=== PATIENT | male | born 1970 | race Two or more races ===

== ENCOUNTER 2023-04-04 23:51 | Emergency (ER) | payer MEDICAID, OTHER ==
[~2023-04-04] VITALS: Ht 167.6 cm; Wt 70.0 kg
[2023-04-04] MEDS ORDERED: SODIUM BICARBONATE 8.4% INJ 50ML SYRINGE IV ONE (23:52)
[2023-04-04] MEDS ORDERED: AMIODARONE 150mg/D5W 100ml AE (BOLUS) IV ONE (23:52)
[2023-04-04] MEDS ORDERED: NALOXONE HCL 1MG/ML 2ML SYRINGE IV ONE (23:52)
[2023-04-04] MEDS ORDERED: ATROPINE SULF 1 MG/10ml SYR IV ONE (23:52)
[2023-04-04] MEDS ORDERED: EPINEPHrine HCL 1 MG/10 ML SYRG IV ONE (23:52)
[2023-04-05] MEDS ORDERED: EPINEPHrine HCL 1 MG/10 ML SYRG ONE (00:13)
[2023-04-05] MEDS ORDERED: CALCIUM CHLOR(10%) 100MG/ML 10ML SYRINGE IV ONE (00:18)
[2023-04-05 00:39] VITALS: BP 0/0; RESP 0; O2SAT 0
[2023-04-05 00:44] VITALS: PULSE 56
[2023-04-05] MEDS ORDERED: EPINEPHrine HCL 1 MG/10 ML SYRG IV ONE ×3 (01:00)
== END 2023-04-05 04:50 ==
LOC: EDBD 23:51 → ER 23:51
DX: I46.9 Cardiac arrest, cause unspecified (principal); J45.909 Unspecified asthma, uncomplicated
CPT/HCPCS: 36556; 92950; 93005; 99285; J0171; J2310